=== PATIENT | female | born 1945 | race Two or more races ===

== ENCOUNTER 2023-04-10 12:15 | Inpatient (IN) | payer OTHER ==
[~2023-04-10] VITALS: Ht 152.4 cm; Wt 90.7 kg
[2023-04-10] MEDS ORDERED: METOPROLOL TART75 MG (12:34)
[2023-04-10] MEDS ORDERED: BUMETANIDE1 MG (12:34)
[2023-04-10] MEDS ORDERED: WARFARIN SODIUM3 MG (12:35)
[2023-04-10] MEDS ORDERED: ENTRESTO 24 MG1 EACH (12:35)
== END 2023-05-02 17:46 | disposition home or self-care (01) | DRG 291 ==
LOC: ER 12:15 → ICU-2 18:33 → ICU 20:11 → ICU-2 21:59 → ICU 04-11 13:27 → MEDJ 04-16 20:53
PROVIDERS: ADMIT Specialist; ATTEND Specialist
PROC: B24BZZZ Ultrasonography of Heart with Aorta (ICD-10-PCS; principal; 2023-04-10)
PROC: 30233N1 Transfusion of Nonautologous Red Blood Cells into Peripheral Vein, Percutaneous Approach (ICD-10-PCS; 2023-04-15)
PROC: 4A12X4Z Monitoring of Cardiac Electrical Activity, External Approach (ICD-10-PCS; 2023-04-16)
PROC: CP2C1ZZ Tomographic (Tomo) Nuclear Medicine Imaging of Right Lower Extremity using Technetium 99m (Tc-99m) (ICD-10-PCS; 2023-04-18)
DX: I13.0 Hypertensive heart and chronic kidney disease with heart failure and stage 1 through stage 4 chronic kidney disease, or unspecified chronic kidney disease (principal); I50.33 Acute on chronic diastolic (congestive) heart failure; L89.614 Pressure ulcer of right heel, stage 4; R65.21 Severe sepsis with septic shock; N39.0 Urinary tract infection, site not specified; N18.30 Chronic kidney disease, stage 3 unspecified; E11.22 Type 2 diabetes mellitus with diabetic chronic kidney disease; Z79.4 Long term (current) use of insulin; I27.22 Pulmonary hypertension due to left heart disease; Z74.01 Bed confinement status; D63.1 Anemia in chronic kidney disease; M70.61 Trochanteric bursitis, right hip; Z95.4 Presence of other heart-valve replacement; L08.9 Local infection of the skin and subcutaneous tissue, unspecified; B96.4 Proteus (mirabilis) (morganii) as the cause of diseases classified elsewhere; B95.61 Methicillin susceptible Staphylococcus aureus infection as the cause of diseases classified elsewhere; I48.0 Paroxysmal atrial fibrillation

== ENCOUNTER 2023-07-14 19:41 | Inpatient (IN) | payer OTHER ==
[~2023-07-14] VITALS: Ht 177.8 cm; Wt 59.0 kg
[~2023-07-14 19:41] MED LIST: BUMETANIDE1 MG; ENTRESTO 24 MG1 EACH; METOPROLOL TART75 MG; WARFARIN SODIUM3 MG
[2023-07-14 19:55] LABS: ABG PH 7.362 (7.35-7.45); ABG PO2 73.1 mmHg (80-100); ABG pCO2 29.9 mmHg (35-45); BASE EXCESS -7.4 mmol/l; BICARBONATE 16.6 mmol/l (23-25); SaO2 93.4 %; Tco2 17.5 mmol/l
[2023-07-14 20:04] LABS: allen test SATISFACTORY; o2 28 %; puncture site RADIAL LEFT
[2023-07-14 20:37] LABS: HEMATOCRIT 28.7 % (36.0-45.00); MEAN CELL VOLUME 102.5 fL (80.00-100.00); MEAN CORPUSCULAR HEMOGLOBIN 32.2 pg (27.00-32.0); MEAN CORPUSCULAR HGB CONC 31.4 g/dl (32.0-36.0); PLATELET COUNT 238 K/uL (150-450); RED CELL DISTRIBUTION WIDTH 18.6 % (11.5-14.5)
[2023-07-14 20:38] LABS: PH,URINE 8.5 (5.0-8.0); URINE APPEARANCE Turbid; URINE BILIRRUBIN Small (NEGATIVE); URINE BLOOD Trace; URINE COLOR Dark Yellow; URINE GLUCOSE Negative (NEGATIVE); URINE LEUKOCYTE Large; URINE NITRATE Negative
--- NOTE | 2023-07-14 20:39 | NUR ---
PTE SE ENCUENTRA UNRESPONSIVE, CON OJOS ABIERTOS E INTENTANDO GRITAR. FAMILIAR REFIERE QUE PTE GONZALEZ ESTADO ASI DESPUES DE DARLE UNOS MEDICAMENTOS. SE COLOCA EN KIMMY #[id number], SE CONECTA A MONITOR CARDIACO, NBP Y OXIMETRIA CONTINUA. SE COLECTA MUESTRAS, SE CANALIZA Y SE EMPIEZA DRIP DE LEVOPHED 8MG/250ML D5W @15ML/HR. SE COLOCA CANULA NASAL A 3LT. PTE CON ALCALA DEL HOGAR CON ORINA OSCURA. GRACIELA ULCERAS EN SACRO Y GLUTERO LADO CRAIG. SE REALIZA EKG Y SE PRESENTA A .
[2023-07-14 20:41] LABS: URINE EPITHELIAL CELLS 15.6 uL (0.0-38.8); URINE RBC 85.7 uL (0.0-20.8); URINE WBC 132.6 uL (0.0-23.2)
[2023-07-14 20:55] LABS: URINE BACTERIA > 9821.5 uL (0.0-1933); URINE PROTEIN 100 (NEGATIVE)
[2023-07-14 20:56] LABS: URINE CRYSTALS FEW /HPF
[2023-07-14 20:57] LABS: ALBUMIN 1.5 gm/dL (3.4-5.0); BILIRUBIN TOTAL 0.75 mg/dL (0.3-1.2); CALCIUM 6.7 mg/dL (8.5-10.1); CREATININE SERUM 1.9 mg/dL (0.55-1.02); GFR 25.7; GLOBULINA 4.3 G/DL (2.4-3.5); POTASSIUM 3.87 mEq/L (3.5-5.1); TOTAL PROTEIN 5.8 gm/dL (6.4-8.2)
[2023-07-15 01:08] LABS: INR 3.02
[2023-07-15 01:16] LABS: PROTHROMBIN TIME 29.2 SECONDS (9.0-11.5)
[2023-07-15 03:49] LABS: PARTIAL THROMBOPLASTIN TIME 58.2 SECONDS (22.0-34.0)
[2023-07-15 03:55] LABS: D DIMER 5.54 MG/L
[2023-07-15 10:19] LABS: HEMATOCRIT 31.8 % (36.0-45.00); HEMOGLOBIN 10.4 g/dL (12.0-15.00); MEAN CELL VOLUME 101.4 fL (80.00-100.00); MEAN CORPUSCULAR HEMOGLOBIN 33.1 pg (27.00-32.0); MEAN CORPUSCULAR HGB CONC 32.6 g/dl (32.0-36.0); PLATELET COUNT 291 K/uL (150-450); RED BLOOD COUNT 3.13 M/uL (4.00-6.00); RED CELL DISTRIBUTION WIDTH 18.6 % (11.5-14.5)
[2023-07-15 10:46] LABS: BILIRUBIN TOTAL 0.77 mg/dL (0.3-1.2); CALCIUM 7.6 mg/dL (8.5-10.1); CREATININE SERUM 2.36 mg/dL (0.55-1.02); GFR 20.01; GLOBULINA 4.8 G/DL (2.4-3.5); POTASSIUM 3.72 mEq/L (3.5-5.1); TOTAL PROTEIN 6.8 gm/dL (6.4-8.2)
[2023-07-15 11:09] LABS: INR 3.5
[2023-07-15 11:22] LABS: PARTIAL THROMBOPLASTIN TIME 59.4 SECONDS (22.0-34.0); PROTHROMBIN TIME 33.5 SECONDS (9.0-11.5)
[2023-07-16 07:04] LABS: INR 3.98
[2023-07-16 08:37] LABS: HEMOGLOBIN 9.9 g/dL (12.0-15.00); MEAN CELL VOLUME 99.6 fL (80.00-100.00); MEAN CORPUSCULAR HEMOGLOBIN 32.9 pg (27.00-32.0); MEAN CORPUSCULAR HGB CONC 33.1 g/dl (32.0-36.0); PLATELET COUNT 244 K/uL (150-450); RED BLOOD COUNT 3.02 M/uL (4.00-6.00)
[2023-07-16 08:53] LABS: PROTHROMBIN TIME 37.7 SECONDS (9.0-11.5)
[2023-07-16 08:54] LABS: PARTIAL THROMBOPLASTIN TIME 64.1 SECONDS (22.0-34.0)
[2023-07-17 06:38] LABS: HEMATOCRIT 30.9 % (36.0-45.00); HEMOGLOBIN 9.8 g/dL (12.0-15.00); MEAN CELL VOLUME 101.2 fL (80.00-100.00); MEAN CORPUSCULAR HEMOGLOBIN 32.2 pg (27.00-32.0); MEAN CORPUSCULAR HGB CONC 31.8 g/dl (32.0-36.0); PLATELET COUNT 218 K/uL (150-450); RED BLOOD COUNT 3.05 M/uL (4.00-6.00); RED CELL DISTRIBUTION WIDTH 18.5 % (11.5-14.5)
[2023-07-17 06:55] LABS: ALBUMIN 1.9 gm/dL (3.4-5.0); BILIRUBIN TOTAL 0.53 mg/dL (0.3-1.2); CALCIUM 7.2 mg/dL (8.5-10.1); CREATININE SERUM 1.62 mg/dL (0.55-1.02); GFR 30.89; MAGNESIUM 1.7 mg/dL (1.8-2.4); PHOSPHOROUS 4.4 mg/dL (2.5-4.9); TOTAL PROTEIN 5.9 gm/dL (6.4-8.2)
[2023-07-17 06:56] LABS: INR 2.2
[2023-07-17 07:11] LABS: PARTIAL THROMBOPLASTIN TIME 55.6 SECONDS (22.0-34.0); PROTHROMBIN TIME 21.8 SECONDS (9.0-11.5)
[2023-07-17 07:22] LABS: POTASSIUM 2.97 mEq/L (3.5-5.1)
[2023-07-18 06:52] LABS: HEMATOCRIT 29.2 % (36.0-45.00); HEMOGLOBIN 9.5 g/dL (12.0-15.00); MEAN CELL VOLUME 100.3 fL (80.00-100.00); MEAN CORPUSCULAR HEMOGLOBIN 32.7 pg (27.00-32.0); MEAN CORPUSCULAR HGB CONC 32.6 g/dl (32.0-36.0); PLATELET COUNT 187 K/uL (150-450); RED BLOOD COUNT 2.91 M/uL (4.00-6.00)
[2023-07-18 07:02] LABS: INR 1.73
[2023-07-18 07:15] LABS: ALBUMIN 2.1 gm/dL (3.4-5.0); BILIRUBIN TOTAL 0.55 mg/dL (0.3-1.2); CREATININE SERUM 1.45 mg/dL (0.55-1.02); GFR 35.11; GLOBULINA 4.4 G/DL (2.4-3.5); MAGNESIUM 2.7 mg/dL (1.8-2.4); PHOSPHOROUS 3.9 mg/dL (2.5-4.9); POTASSIUM 4.56 mEq/L (3.5-5.1); TOTAL PROTEIN 6.5 gm/dL (6.4-8.2)
[2023-07-18 07:36] LABS: PARTIAL THROMBOPLASTIN TIME 52.7 SECONDS (22.0-34.0); PROTHROMBIN TIME 17.4 SECONDS (9.0-11.5)
[2023-07-19 06:50] LABS: INR 1.48
[2023-07-19 07:15] LABS: PROTHROMBIN TIME 15.1 SECONDS (9.0-11.5)
[2023-07-19 07:16] LABS: PARTIAL THROMBOPLASTIN TIME 51.8 SECONDS (22.0-34.0)
[2023-07-19 11:50] LABS: CALCIUM 7.4 mg/dL (8.5-10.1); CREATININE SERUM 1.44 mg/dL (0.55-1.02); GFR 35.39; MAGNESIUM 2.5 mg/dL (1.8-2.4); PHOSPHOROUS 4.3 mg/dL (2.5-4.9); POTASSIUM 4.06 mEq/L (3.5-5.1)
[2023-07-19 13:15] LABS: ABG PO2 67.5 mmHg (80-100); BASE EXCESS -10.7 mmol/l; BICARBONATE 17.6 mmol/l (23-25); Tco2 19.1 mmol/l
[2023-07-19 14:23] LABS: ABG PH 7.183 (7.35-7.45); allen test SATISFACTORY; o2 36 %; puncture site RADIAL LEFT
[2023-07-21 05:20] LABS: ABG PO2 79.4 mmHg (80-100); BASE EXCESS -11.7 mmol/l; BICARBONATE 17.9 mmol/l (23-25); SaO2 89.3 %; Tco2 19.6 mmol/l
[2023-07-21 07:20] LABS: BILIRUBIN TOTAL 0.56 mg/dL (0.3-1.2); CALCIUM 8.2 mg/dL (8.5-10.1); CREATININE SERUM 2.05 mg/dL (0.55-1.02); GFR 23.54; GLOBULINA 4.7 G/DL (2.4-3.5); MAGNESIUM 2.6 mg/dL (1.8-2.4); PHOSPHOROUS 5.8 mg/dL (2.5-4.9); POTASSIUM 4.81 mEq/L (3.5-5.1); TOTAL PROTEIN 6.7 gm/dL (6.4-8.2)
[2023-07-21 07:49] LABS: HEMATOCRIT 30.9 % (36.0-45.00); MEAN CELL VOLUME 105.7 fL (80.00-100.00); MEAN CORPUSCULAR HGB CONC 30.8 g/dl (32.0-36.0); PLATELET COUNT 205 K/uL (150-450); RED BLOOD COUNT 2.92 M/uL (4.00-6.00); RED CELL DISTRIBUTION WIDTH 19.5 % (11.5-14.5)
[2023-07-21 07:51] LABS: HEMOGLOBIN 9.5 g/dL (12.0-15.00); MEAN CORPUSCULAR HEMOGLOBIN 32.5 pg (27.00-32.0)
[2023-07-21 08:03] LABS: ABG PH 7.131 (7.35-7.45)
[2023-07-21 08:04] LABS: allen test SATISFACTORY; o2 50 %; puncture site RADIAL RIGHT
[2023-07-21 12:24] LABS: ABG PO2 260.1 mmHg (80-100); BASE EXCESS -15.1 mmol/l; SaO2 99.2 %
[2023-07-21 12:25] LABS: BICARBONATE 20.2 mmol/l (23-25); Tco2 23.3 mmol/l; o2 100 %; puncture site RADIAL RIGHT
[2023-07-21 12:26] LABS: allen test SATISFACTORY
[2023-07-21 12:27] LABS: ABG PH 6.904 (7.35-7.45)
[2023-07-21 12:28] LABS: ABG pCO2 104.2 mmHg (35-45)
== END 2023-07-21 20:43 | disposition expired | DRG 871 ==
LOC: ER 19:41 → ICU 22:33 → ICU-2 22:33 → ICU 07-15 03:56
PROVIDERS: Emergency Medicine; General Practice; Internal Medicine; Internal Medicine Nephrology; ADMIT Internal Medicine; ATTEND Internal Medicine
PROC: 0DH67UZ Insertion of Feeding Device into Stomach, Via Natural or Artificial Opening (ICD-10-PCS; principal; 2023-07-19)
PROC: 3E0G76Z Introduction of Nutritional Substance into Upper GI, Via Natural or Artificial Opening (ICD-10-PCS; 2023-07-19)
PROC: 5A09357 Assistance with Respiratory Ventilation, Less than 24 Consecutive Hours, Continuous Positive Airway Pressure (ICD-10-PCS; 2023-07-19)
DX: A41.2 Sepsis due to unspecified staphylococcus (principal); I33.0 Acute and subacute infective endocarditis; L89.154 Pressure ulcer of sacral region, stage 4; R65.21 Severe sepsis with septic shock; N39.0 Urinary tract infection, site not specified; J90 Pleural effusion, not elsewhere classified; J98.11 Atelectasis; B96.4 Proteus (mirabilis) (morganii) as the cause of diseases classified elsewhere; I48.91 Unspecified atrial fibrillation; I27.22 Pulmonary hypertension due to left heart disease; I12.9 Hypertensive chronic kidney disease with stage 1 through stage 4 chronic kidney disease, or unspecified chronic kidney disease; E11.22 Type 2 diabetes mellitus with diabetic chronic kidney disease; N18.30 Chronic kidney disease, stage 3 unspecified; I95.9 Hypotension, unspecified; Z74.01 Bed confinement status; B95.61 Methicillin susceptible Staphylococcus aureus infection as the cause of diseases classified elsewhere; Z66 Do not resuscitate